=== PATIENT | female | born 1975 | race Caucasian/White ===

== ENCOUNTER 2022-05-19 09:15 | Outpatient (CLI) | payer OTHER, SELFPAY ==
--- NOTE | 2022-05-19 09:41 | ECG_ITS ---
Measurements Intervals [place] Rate: 78 P: 57 VT: 155 QRS: -28 QRSD: 106 T: 57 QT: 391 QTc: 446 Interpretive Statements SINUS RHYTHM INCOMPLETE RIGHT BUNDLE BRANCH BLOCK LOW QRS VOLTAGE IN PRECORDIAL LEADS POOR R WAVE PROGRESSION, ANTERIOR LEADS BORDERLINE T WAVE ABNORMALITY- ANTERIOR LEADS BORDERLINE ECG NO PREVIOUS ECG AVAILABLE FOR COMPARISON Electronically Signed On 05-19-2022 9:58:49 CDT by Pedro Edwards D.O.
[2022-05-19 10:35] LABS: Hematocrit 36.6 % (37.0-47.0); Hemoglobin 11.4 g/dL (12.0-15.0)
[2022-05-19 10:40] LABS: Anion Gap 7 mmol/L (8-16); Blood Urea Nitrogen 8 mg/dL (7-17); Calcium 8.8 mg/dL (8.4-10.2); Carbon Dioxide 28 mmol/L (22-30); Chloride 105 mmol/L (98-107); Estimated Glomerular Filt Rate > 60; Glucose 127 mg/dL (65-110); Potassium 4.1 mmol/L (3.4-5.0); Sodium 140 mmol/L (137-145)
== END 2022-05-19 09:16 | disposition home or self-care (01) ==
LOC: ANHSURGERY 09:24
PROVIDERS: Anesthesiology; PCP Nurse Practitioner Family; Visit Provider Obstetrics & Gynecology
DX: Z01.818 Encounter for other preprocedural examination (principal); N85.00 Endometrial hyperplasia, unspecified; D64.9 Anemia, unspecified; E11.9 Type 2 diabetes mellitus without complications; I45.19 Other right bundle-branch block
CPT/HCPCS: 36415; 80048; 85014; 85018; 86850; 86900; 86901; 93005

== ENCOUNTER 2022-05-21 00:20 | Day surgery (SDC) | payer OTHER, SELFPAY ==
--- NOTE | 2022-05-07 13:57 | SUR.PREOP ---
Report to the Outpatient Waiting Room, entrance under the green pavilion located off [facility], at time 1000 on date 05/21/22. Planned Procedure Time: 1200. Time changes happen often and if your time is changed the preop area will call you the afternoon before. - You and your visitor will be asked to self-screen and do not enter if you have any COVID symptoms. - Only one visitor is requested with a max of two and NO children visitors are allowed at this time. - The patient visitor may be requested to leave or wait in car when not with patient due to distancing restrictions. - A mask is optional within the hospital at this time. Patients may have clear liquids (water, carbonated beverages, clear teas, apple juice) until 3 hours prior to surgery with a maximum of 20 ounces. - NO CLEAR LIQUIDS AFTER 0900. NO COFFEE. NO DAIRY. - No food from midnight until time of surgery - Infants may have breast milk until 4 hours before surgery, infant formula 6 hours prior to surgery. - Children will be allowed to drink immediately following surgery. If applicable, please bring a bottle or sippy cup to assist with drinking. Juice, water, soda, and popsicles are readily available. For infants on formula, please bring formula the day of surgery. Pacifiers are allowed. Take the following medications with a SIP of water the morning of surgery: BRING INHALER WITH YOU DAY OF SURGERY DO NOT STOP ANY OF YOUR OTHER PRESCRIPTION MEDICATIONS PRIOR TO SURGERY ?EXCEPT THE FOLLOWING Medications to discontinue per physician N/A Date to take last dose N/A Please no make-up, nail albanian, hairspray, perfume, deodorant, or body powder the day of surgery. No jewelry (including any body piercings) or valuables the day of surgery, leave them at home. Please take a shower or bath the night before, or the morning of, surgery with an antibacterial soap. Wear comfortable, loose fitting clothing. Children are encouraged to wear pajamas. - Jewelry must be removed prior to entering the operating room. Rings and piercings that are not removed may be cut off. - The hospital will not accept responsibility for valuables. - Please leave all valuables, including medications, at home the day of surgery. If you are going home after surgery, a licensed [employer] flatbed driver must drive you home. - NO public transportation without another adult if you receive anesthesia. - We recommend that an adult stay with you for 24 hours following discharge. - We also recommend that you do not drive, make important decision, drink alcoholic beverages, or take any drugs that were not prescribed by your health care provider for at least 24 hours after your discharge time. For Pediatric surgeries, we recommend two adults accompany the child home. Follow any additional instructions given to you from your surgeon. If you or anyone in your household have experienced Covid symptoms in the past week, please notify your surgeon or the nurse liaison at the phone number below for possible testing. Telephone instructions given to GABRIELLE CARLSON and asked if any additional questions and then verbalized understanding. Patient advised to call surgeon office or pre surgery nurse liaison [phone] if any additional questions.
[2022-05-07 14:07] VITALS: BMI 41.5
[2022-05-21] VITALS (11 sets, daily range): BP systolic 107–135; BP diastolic 72–80; PULSE 69–106; RESP 12–19; TEMP 36.2–37.2; O2SAT 95–100
--- NOTE | 2022-05-21 09:00 | PM.IMHP ---
H&P: HPI History of Present Illness Date/Time: 05/21/22 09:00 Chief Complaint: Abnormal uterine bleeding Narrative: Patient is a 47 y/o presented to the office with complaints of several years of abnormal uterine bleeding. patient was scheduled an ablation with prior physician. She reports bleeding some months heavier than others but more concerned with bleeding for months at a time. she reports irregular spotiting and clots at all times of the month. Review of Systems Genitourinary: Comments: pelvic pain PMFSH Past Medical History Medical History (Updated 05/21/22 @ 09:17 by Geovanny Quach MD) Abnormal uterine bleeding (AUB) Social History Social History Smoking status: Former smoker Smoking end date: 04/01/06 Living arrangements: with family Spiritual care concerns: No Meds Home Medications and Allergies Home Medications Medication Instructions Recorded Confirmed Type cyanocobalamin (vitamin B-12) 500 500 mcg intranasal WEEKLY 05/07/22 05/07/22 History mcg/spray nasal spray (Nascobal) metformin 500 mg tablet 500 mg PO DAILY 05/07/22 05/07/22 History multivitamin with iron 1 tablet PO DAILY 05/07/22 05/07/22 History semaglutide 1 mg/dose (4 mg/3 mL) 1 mg subcut WEEKLY 05/07/22 05/07/22 History subcutaneous pen injector (Ozempic) Allergies Allergy/AdvReac Type Severity Reaction Status Date / Time No Known Allergies Allergy Verified 05/07/22 14:07 Vital Signs 114/78 Exam Const: General: well developed and obese Chest: Chest palpation & inspection: normal inspection of the chest Breast/axilla inspection: normal inspection of the breasts Resp: Effort & Inspection: normal respiratory effort Auscultation: clear to auscultation bilaterally GI: Auscultation: normal bowel sounds : General: Yes bladder normal to inspection Speculum Exam - Vagina: normal appearance of the vagina Speculum Exam - Cervix: normal appearance of the cervix Bimanual exam- vagina & uterus: normal bimanual exam and uterine size normal Bimanual Exam- Adnexa, other: no masses H&P: Results Labs Labs: normal pap smear atypical enometrial cells with dyssynchronous background Imaging pelvid ultrasound normal uterus tubes and ovaries: My impression: normal Assessment and Plan Assessment and plan (1) Abnormal uterine bleeding (AUB): Code(s): N93.9 - Abnormal uterine and vaginal bleeding, unspecified Status: Acute Plan AUB- scheduled for a laparoscopic assisted vaginal hysterectomy. risk and benefits reviewed with patient in detail including bleeding infection trauma damage to surroing organs, conversion to abdominal hysterectomy. patient reports understands and desires to proceed with surgery. Quality VTE Prophylaxis VTE prophylaxis: mechanical ordered
--- NOTE | 2022-05-21 10:37 | WPDANESEPPF ---
Anes - Initial Pre Proc Eval Procedure: Operation Date: 05/21/22 12:00 Proposed Procedures p Laparoscopic Assisted Vaginal Hysterectomy - Geovanny Quach MD Date/Time: 05/21/22 10:37 Surgeon: Geovanny Quach MD Pre Op Diagnosis: Atypical Endometrial Hyperplasia Patient Data Age: 47 Gender: F Height: 1.7 m Weight: 120.4 kg Allergies Allergy/AdvReac Type Severity Reaction Status Date / Time No Known Allergies Allergy Verified 05/07/22 14:07 Home Medications Medication Instructions Recorded Confirmed Type cyanocobalamin (vitamin B-12) 500 500 mcg intranasal WEEKLY 05/07/22 05/07/22 History mcg/spray nasal spray (Nascobal) metformin 500 mg tablet 500 mg PO DAILY 05/07/22 05/07/22 History multivitamin with iron 1 tablet PO DAILY 05/07/22 05/07/22 History semaglutide 1 mg/dose (4 mg/3 mL) 1 mg subcut WEEKLY 05/07/22 05/07/22 History subcutaneous pen injector (Ozempic) Patient hx anesthesia problems: none Family hx anesthesia problems: none Results Review: All pre-operative results and documents have been reviewed as part of the pre-operative evaluation. [facility] Past Medical History Medical History (Updated 05/21/22 @ 10:38 by Miguelito Moran MD) Abnormal uterine bleeding (AUB) Diabetes Morbid obesity Surgical History Surgical History (Updated 05/21/22 @ 10:38 by Miguelito Moran MD) History of cholecystectomy Social History Social History Smoking status: Former smoker Smoking end date: 04/01/06 Living arrangements: with family Spiritual care concerns: No Anes - Eval Final PreProcedure Day of Procedure 05/21/22 10:37 Patient weight: morbidly obese Heart: regular rate and rhythm Lungs: clear to auscultation Airway: Mallampati scale class II Neurological: alert and oriented Last oral intake: >/= 8 hours ASA classification: III Emergent: no Anesthetic plan: proceed Anesthesia type and monitoring: general ETT and standard monitoring Results Review: All pre-operative results and documents have been reviewed as part of the pre-operative evaluation. Informed Consent: The patient's anesthetic plan and its attendant risks and benefits were discussed with the patient/family/POA. Questions were solicited and answers provided to the satisfaction of the patient/family/POA.
[2022-05-21] MEDS: LACTATED RINGERS 1,000 ML 30 ML IV CONT ×2 (11:20→15:04)
[2022-05-21] MEDS: ACETAMINOPHEN 500 MG TABLET 1000 MG PO (11:20)
[2022-05-21] MEDS: SCOPOLAMINE 1.5 MG PATCH TRANSDERM (11:20)
[2022-05-21] MEDS: KETOROLAC 15 MG/ML VIAL (*BKC) IV PUSH (11:20)
[2022-05-21 11:33] LABS: Glucose Point of Care 85 mg/dl (65-105)
--- NOTE | 2022-05-21 11:44 | WPDHPUPDATE1 ---
History and Physical Update Update Date/Time: 05/21/22 11:44 History and Physical has been reviewed, including an updated exam of the patient. There are NO changes in the patient's condition. Risks, benefits, and alternatives have been discussed and questions answered. Patient agrees to proceed with procedure.
[2022-05-21] MEDS: ceFAZolin 3 GM/D5W 100 ML 100 ML IVPB (12:19)
[2022-05-21] MEDS: LIDO 1%/EPINEPHRINE 1:100,000 50 ML VIAL 30 ML INFILTRATE (13:03)
--- NOTE | 2022-05-21 14:57 | PM.OP ---
Procedure Note - Brief Procedure Note - Brief Date of procedure: 05/21/22 Pre-op diagnosis: Atypical Endometrial Hyperplasia AUB with atypia Post-op diagnosis: Same Procedure performed: LAVH with bilateral salpingectomy and lysis of adhesions Surgeon: Geovanny Quach MD Estimated blood loss (mL): 1,350 IV fluids (mL): 2,000 Urine output (mL): 200 Drains: Yes Packing: Yes Pathology: Yes Complications: None Condition: Stable Disposition: PACU Findings: omental and dense adhesions to abdominal wall and pelvis
--- NOTE | 2022-05-21 15:00 | W.PM.PROC2 ---
Procedure Note - Detailed Date of Procedure 05/21/22 Pre-op Diagnosis Atypical Endometrial Hyperplasia, AUB Post-op Diagnosis Same Procedure Performed LAVH with bilateral salpingectomy Surgeon Geovanny Quach MD Anesthesia General Findings several omental and dense adhesions Description of Procedure General anesthesia was induced and the patient was placed in the dorsal lithotomy position. The abdomen, perineum, and vagina were prepped and draped in the usual fashion. A mendez catheter inserted into the bladder and attached to straight drainage. After the initial preparation, the procedure commenced at the vagina. With a speculum in place to visualize the cervix, the anterior and posterior lips of the cervix were separately grasped and clamped with single tooth tenaculum. The uterus was then sounded to 8 cm and for manipulation purposes being careful not to puncture the uterus a acorn manipulator was placed. Attention was then turned to the abdomen. Following infiltration with Marcaine, an infraumbilical incision was made and the Veress needle was gently advanced taking care to feel for the typical sensation of penetrating the peritoneum. With CO2 infiltration, an opening pressure of 7 mmHg was noted, and following this, a pneumoperitoneum of 15 mmHg was created. A 5 mm trocar was then passed through the same incision and the laparoscope was then inserted through the trocar sleeve. Visualization of the peritoneal cavity was then obtained and a brief inspection did not reveal any signs of complications from entry. Under direct observation, 5mm flank ports were then placed laterally on both the right and left sides taking care to respect anatomical landmarks and vessels. Once the placement of the ports was complete, the actual laparoscopic procedure began.There were several adhesions from the omentum and dense adhesions to the abdomen. About 30 mins was used to gently dissect cut and cauterize for visualization of the pelvis. Beginning on the left side and distally along the length of the fallopean tube, the mesosalpinx was exposed by lifting the tube up towards the anterior abdominal wall. The mesosalpinx was then sequentially, clamped, ligated, and cut using the ligasure working alongside the length of the tube and towards the cornua. Once the level of the cornua was reached. Attention was then turned to the other side. The same process was repeated on the left, sequentially clamping, ligating, and cutting the mesosalpinx being sure to not injure the adjacent ovarian tissue or other surrounding structures. The round ligament was then ligated and cut. Following this, the anterior leaf of the broad ligament was then taken down on the left side, dissecting down towards the peritoneal reflection at the base of the bladder and adjacent to the cervix. The same process was then repeated on the left side such that both sides met and the anterior leaflet had been appropriately skeletonized. To ensure excellent hemostasis prior to further manipulation, the pedicles of the cardinal ligament was then ligated and divided on each side using the Ligasure. Attention was then turned to the vaginal aspect of the surgery. The mendez catheter was removed. A weighted speculum was placed in the posterior aspect of the vagina and the vaginal manipulator was removed. The tenaculum were repositioned anteriorly and posteriorly. A circumferential incision was made at the cervical vaginal reflection using cautery. This was undermind first anteriorly and a colpotomy made without difficulty. This was then repeated posteriorly and a similar colpotomy made. Don retractors were then placed into each of these incisions. Beginning first on the patient's left, the uterosacral and cardnal ligament was clamped, divided, and suture ligated. Two bites were required to reach the previous dissection margin of the left side. The same process was then repeated on the patient's right hand side, Arter
[2022-05-21 15:32] LABS: Glucose Point of Care 159 mg/dl (65-105)
[2022-05-21] MEDS: fentaNYL CITRATE INJ (*CRX) 100 MCG/2 ML VIAL 25 MCG IV PUSH ×3 (15:37→16:22)
--- NOTE | 2022-05-21 16:50 | PC.NURSE ---
PT arrived from recovery room via bed and taken to room 284. PT alert and awake accompanied by spouse and mother. PT oriented to room and surroundings and pt introductions made. Plan of care discussed per post op day care director surgery, pain management, and daily care activities. PT and family all recipients of such instructions and no barriers to learning identified at this time. PT received such instructions per one to one discussion and demonstrations this shift. PT verbalized understanding of such care.
[2022-05-21] MEDS: KETOROLAC 30 MG/ML VIAL (*BKC) IV PUSH (17:12)
[2022-05-21] MEDS: DEXTROSE 5%/LACTATED RINGERS 1,000 ML 125 ML IV CONT (17:12)
[2022-05-21] MEDS: HYDROcodone/acetaminophen (*CRX) 10-325 MG TABLET 1 TAB PO ×2 (17:39→23:50)
[2022-05-21] MEDS: SIMETHICONE 80 MG TAB.CHEW PO (17:41)
[2022-05-21] MEDS: MORPHINE SULFATE (*CRX) 4 MG/ML INJ IV PUSH (19:58)
[2022-05-21] MEDS: SENNA/DOCUSATE SODIUM TABLET 2 TAB PO (23:52)
[2022-05-22 05:06] LABS: Basophils Percent Auto 0.1 % (0.2-1.2); Eosinophils Percent Auto 0.1 % (0-4.4); Hematocrit 30.5 % (37.0-47.0); Hemoglobin 9.5 g/dL (12.0-15.0); Immature Granulocyte Absolute 0.06 K/mm3 (0.00-0.031); Immature Granulocyte Percent A 0.4 % (0-0.5); Lymphocytes Absolute Auto 1.49 K/mm3 (0.9-3.2); Lymphocytes Percent Auto 10.8 % (18.3-44.2); Mean Corpuscular HGB Conc 31.1 g/dl (32-36); Mean Corpuscular Hemoglobin 24.7 pg (26-34); Mean Corpuscular Volume 79.2 fl (80-100); Mean Platelet Volume 8.4 fl (7.4-10.4); Monocytes Absolute Auto 1.1 K/mm3 (0.1-0.6); Neutrophils Absolute Auto 11.2 K/mm3 (1.3-6.7); Neutrophils Percent Auto 80.6 % (45.5-73.1); Platelet Count Result 407 k/mm3 (150-375); Red Blood Count 3.85 M/mm3 (4.2-5.4); Red Cell Distribution Width 14.2 % (11.5-14.5); White Blood Count 13.8 K/mm3 (4.5-10.0)
[2022-05-22] MEDS: HYDROcodone/acetaminophen (*CRX) 5-325 MG TABLET 1 TAB PO ×2 (05:08→09:26)
[2022-05-22 05:20] VITALS: BP 105/68; PULSE 87; RESP 18; TEMP 36.9; O2SAT 96
[2022-05-22 05:20] LABS: Anion Gap 4 mmol/L (8-16); Blood Urea Nitrogen 6 mg/dL (7-17); Calcium 8.4 mg/dL (8.4-10.2); Carbon Dioxide 26 mmol/L (22-30); Chloride 103 mmol/L (98-107); Estimated CRCL calculation 135 ml/min; Estimated Glomerular Filt Rate > 60; Glucose 121 mg/dL (65-110); Potassium 4.4 mmol/L (3.4-5.0); Sodium 133 mmol/L (137-145)
--- NOTE | 2022-05-22 08:00 | PC.NURSE ---
PT introductions made and plan of care discussed per post op ob/gyn surgery, pain management, daily care activities and pending discharge to home. PT and spouse both verbalized understanding of such care and no barriers to learning identified at this time. PT received such instructions per one to one discussion and demonstrations this shift.
[2022-05-22 09:00] VITALS: BP 106/74; PULSE 86; RESP 18; TEMP 36.3; O2SAT 98
[2022-05-22 09:26] VITALS: BP 106/74; PULSE 86; RESP 18; TEMP 36.3; O2SAT 98
[2022-05-22] MEDS: SIMETHICONE 80 MG TAB.CHEW PO (09:26)
[2022-05-22] MEDS: IBUPROFEN 600 MG TABLET PO (09:26)
--- NOTE | 2022-05-22 10:03 | WPDANESPN ---
Anes - Prog Note Post-Op Date/Time: 05/22/22 10:03 Cardiovascular status: normal Respiratory status: normal Airway patency: baseline Mental status: baseline Post-Op hydration status: normal Vital Signs: Last Vital Signs Temp 97.3 F L 05/22/22 09:00 Pulse 86 05/22/22 09:00 Resp 18 05/22/22 09:00 BP 106/74 05/22/22 09:00 Pulse Ox 98 05/22/22 09:00 O2 Del Method Room Air 05/21/22 16:50 O2 Flow Rate 10 05/21/22 15:30 Pain Score (VAS): 3 I/O: Intake & Output 05/21/22 05/22/22 05/22/22 23:59 07:59 15:59 Intake Total 1180 240 Output Total 1550 900 Balance -370 -660 Laboratory Tests 05/22/22 04:47 05/22/22 04:47 05/21/22 05/21/22 05/22/22 11:31 15:30 04:47 WBC 13.8 H RBC 3.85 L Hgb 9.5 L Hct 30.5 L MCV 79.2 L MCH 24.7 L MCHC 31.1 L RDW 14.2 Plt Count 407 H MPV 8.4 Immature Gran % (Auto) 0.4 Neut % (Auto) 80.6 H Lymph % (Auto) 10.8 L Atkinson % (Auto) 8.0 Eos % (Auto) 0.1 Baso % (Auto) 0.1 L Lymph # (Auto) 1.49 Atkinson # (Auto) 1.1 H Eos # (Auto) 0.0 Baso # (Auto) 0.0 Abs Immat Gran (auto) 0.06 H Absolute Neuts (auto) 11.2 H Absolute Nucleated RBC 0.0 Nucleated RBC % 0.0 Sodium Potassium Chloride Carbon Dioxide Anion Gap BUN Creatinine Estim Creat Clear Calc Estimated GFR Glucose POC Capillary Glucose 85 159 H Calcium 05/22/22 04:47 WBC RBC Hgb Hct MCV MCH MCHC RDW Plt Count MPV Immature Gran % (Auto) Neut % (Auto) Lymph % (Auto) Atkinson % (Auto) Eos % (Auto) Baso % (Auto) Lymph # (Auto) Atkinson # (Auto) Eos # (Auto) Baso # (Auto) Abs Immat Gran (auto) Absolute Neuts (auto) Absolute Nucleated RBC Nucleated RBC % Sodium 133 L Potassium 4.4 Chloride 103 Carbon Dioxide 26 Anion Gap 4 L BUN 6 L Creatinine 0.60 L Estim Creat Clear Calc 135 Estimated GFR > 60 Glucose 121 H POC Capillary Glucose Calcium 8.4 Post-procedural complaints: none Patient Feedback: Patient satisfied with anesthetic care.
--- NOTE | 2022-05-22 10:30 | PC.NURSE ---
PT received discharge instructions per protocol and verbalized understanding of such care.
--- NOTE | 2022-05-22 10:37 | PC.NURSE ---
PT discharged to home via wheelchair accompanied by spouse and taken to waiting car. Follow up appts confirmed
== END 2022-05-22 10:37 | disposition home or self-care (01) ==
LOC: ANHSURGERY 09:55 → ANHOB2 16:45
PROVIDERS: PCP Nurse Practitioner Family; Visit Provider Obstetrics & Gynecology
PROC: 0UT9FZZ Resection of Uterus, Via Natural or Artificial Opening With Percutaneous Endoscopic Assistance (ICD-10-PCS; CPT 58552; principal; 2022-05-21 12:00)
DX: N93.9 Abnormal uterine and vaginal bleeding, unspecified (principal); N73.6 Female pelvic peritoneal adhesions (postinfective); D25.1 Intramural leiomyoma of uterus; N87.9 Dysplasia of cervix uteri, unspecified; N83.8 Other noninflammatory disorders of ovary, fallopian tube and broad ligament; E11.9 Type 2 diabetes mellitus without complications; Z79.84 Long term (current) use of oral hypoglycemic drugs; Z79.899 Other long term (current) drug therapy; E66.01 Morbid (severe) obesity due to excess calories; Z68.41 Body mass index [BMI] 40.0-44.9, adult; Z87.891 Personal history of nicotine dependence
CPT/HCPCS: 58552; 36415; 80048; 82948; 85014; 85018; 85025; 86850; 86900; 86901; 88307; 93005; 99199; A9270; J0690; J1100; J1170; J1885; J2250; J2270; J2405; J2704; J2710; J3010; J7120; J7121